=== PATIENT | male | born 1970 | race Two or more races ===

== ENCOUNTER 2016-06-11 11:31 | Emergency (ER) | payer OTHER ==
[2016-06-11 11:37] VITALS: TEMP 98.3; BMI 28.1
[2016-06-11] MEDS ORDERED: IBUPROFEN 400 MG TABLET (FP) PO ONE ×2 (12:37→12:40)
--- NOTE | 2016-06-11 13:24 | PDOC ---
[id number] Timing/Duration: reports: constant Quality: reports: severe <Bridger Cavazos - Last Filed: 06/11/16 15:05> <Magdiel Love - Last Filed: 06/16/16 07:59> - General Chief Complaint: Pain Stated Complaint: HEMMORHOID, LOWER PELVIC REGION Time Seen by Provider: 06/11/16 12:13 Past History - Past Medical History Anemia: No Asthma: No Cancer: No Cardiac Disorders: No CVA: No COPD: No CHF: No Dementia: No Diabetes: No GI Disorders: Yes (CONSTIPATION, GERD) Disorders: No HTN: No Hypercholesterolemia: No Liver Disease: No Seizures: No Thyroid Disease: No Other medical history: anal fissure - Surgical History Abdominal Surgery: No Appendectomy: No Cardiac Surgery: No Cholecystectomy: No Lung Surgery: No Neurologic Surgery: No Orthopedic Surgery: No - Psycho/Social/Smoking Cessation Hx Anxiety: No Suicidal Ideation: No Smoking History: Never smoked Have you smoked in the past 12 months: Yes Number of Cigarettes Smoked Daily: 3 Information on smoking cessation initiated: Yes Hx Alcohol Use: No Drug/Substance Use Hx: No Substance Use Type: None <Bridger Cavazos - Last Filed: 06/11/16 15:05> <Magdiel Love - Last Filed: 06/16/16 07:59> - Past Medical History Allergies/Adverse Reactions: Allergies Allergy/AdvReac Type Severity Reaction Status Date / Time No Known Allergies Allergy Verified 06/11/16 11:32 Home Medications: Ambulatory Orders NK [No Known Home Medication] 06/11/16 Review of Systems - Review of Systems Constitutional: No: Chills, Fever ABD/GI: Yes: Constipated, Rectal Bleeding. No: Diarrhea, Nausea, Vomiting, Abdominal cramping <Bridger Cavazos - Last Filed: 06/11/16 15:05> *Physical Exam - Vital Signs Last Vital Signs Temp Pulse Resp BP Pulse Ox 98.3 F 106 H 18 155/94 100 06/11/16 11:34 06/11/16 11:34 06/11/16 11:34 06/11/16 11:34 06/11/16 11:34 - Physical Exam General Appearance: Yes: Appropriately Dressed. No: Apparent Distress HEENT: positive: Normal Voice Neck: positive: Supple Respiratory/Chest: negative: Respiratory Distress Gastrointestinal/Abdominal: positive: Soft. negative: Tender Rectal Exam: positive: hemorrhoids, other (no obvious fissure, unable to digital exam) <Bridger Cavazos - Last Filed: 06/11/16 15:05> - Vital Signs Last Vital Signs Temp Pulse Resp BP Pulse Ox 98.3 F 83 18 146/87 97 06/11/16 11:34 06/11/16 15:35 06/11/16 15:35 06/11/16 15:35 06/11/16 15:35 <Magdiel Love - Last Filed: 06/16/16 07:59> ED Treatment Course - Medications Given in the ED: ED Medications Discontinued Medications Generic Name Dose Route Start Last Admin Trade Name Freq PRN Reason Stop Dose Admin Ibuprofen 800 mg 06/11/16 12:37 06/11/16 12:43 Motrin - PO 06/11/16 12:38 800 mg ONCE ONE Administration <Bridger Cavazos - Last Filed: 06/11/16 15:05> - Medications Given in the ED: ED Medications Discontinued Medications Generic Name Dose Route Start Last Admin Trade Name Freq PRN Reason Stop Dose Admin Ibuprofen 800 mg 06/11/16 12:37 06/11/16 12:43 Motrin - PO 06/11/16 12:38 800 mg ONCE ONE Administration <Magdiel Love - Last Filed: 06/16/16 07:59> Medical Decision Making - Medical Decision Making 06/11/16 13:20 45-year-old male, h/o GERD, endorses history of chronic rectal fissure was told at one point that he might need surgery, but currently following up with Dr. Gillespie and being treated symptomatically as needed, presenting with severe rectal pain with bright red blood per rectum in setting of constipation 1 week. Currently using [id number] laxatives and using sitz baths with some improvement and had a BM this am but states rectal pain remains intolerable. No abdominal pain, nausea, vomiting, fever or chills. Status post colonoscopy several months ago with unremarkable findings See exam Rectal pain w/ brbpr in setting of constipation in pt w/ h/o chronic rectal fissure 1 external hemorrhoid vs skin tag on rectal exam, no obvious fissure externally and pt unable to maría elena digital exam -pain control in ED -GI for recs 06/11/16 13:24 06/11/16 13:25 06/11/16 13:29 06/11/16 15:[address] Gillespie who recommend sending patient home with compound of nifedipine, lidocaine and hydrocortisone compound in bullet form for patient to use once a day for 5 days. Dennise requested me to call [facility] as they one of the only facilities that compound these meds. I contacted pharmacy, who states they will prepare medication, but wont be ready untill tomorrow or day after. Patient aware and will pickup meds when ready and follow-up with Dr. Gillespie. Patient instructed in the meantime to continue laxative and sitz baths 06/11/16 15:27 <Bridger Cavazos - Last Filed: 06/11/16 15:05> - Medical Decision Making The patient was seen and evaluated in conjunction with KRISTOPHER Box under my direct supervision, ancillary studies were reviewed. I agree with the plan as outlined by KRISTOPHER Cavazos . <Magdiel Love - Last Filed: 06/16/16 07:59> *DC/Admit/Observation/Transfer <Bridger Cavazos - Last Filed: 06/11/16 15:05> <Magdiel Love - Last Filed: 06/16/16 07:59> Diagnosis at time of Disposition: Anal fissure - Discharge Dispostion Disposition: HOME Condition at time of disposition: Good - Referrals Referrals: More Jones MD [Primary Care Provider] - - Patient Instructions Printed Discharge Instructions: Anal Fissure Additional Instructions: We discussed plan with Dr. Gillespie who recommended a concoction of nifedipine, lidocaine hydrocortisone, topical ointment to be used once a day for 5 days. The prescription was sent to [facility] that is located at [address] [place] [address]. Their phone number is [phone]. There are open from 9 AM to 7 PM. Prescription will be ready tomorrow or the day after. Please follow-up with Dr. Gillespie this week
[2016-06-11 15:45] VITALS: BP 146/87; PULSE 83
== END 2016-06-11 15:40 | disposition home or self-care (01) ==
LOC: JER 11:31
DX: K60.2 Anal fissure, unspecified (principal)
CPT/HCPCS: 99282-25

== ENCOUNTER 2017-01-27 10:35 | Emergency (ER) | payer OTHER ==
[2017-01-27 10:52] VITALS: BP 130/71; PULSE 70; TEMP 98.3; BMI 27.3
--- NOTE | 2017-01-27 11:57 | PDOC ---
History of Present Illness - General Chief Complaint: Ear Problem Stated Complaint: FOREIGN SUBSTANCE IN LT EAR Time Seen by Provider: 01/27/17 11:15 History Source: Patient Exam Limitations: No Limitations - History of Present Illness Initial Comments: 01/27/17 11:58 This is a 46-year-old gentleman without significant past medical history who presents to the emergency department with decreased hearing in his left ear. Patient states she is using silicone earplugs for which he breaks off pieces and inserts into his ears. Patient denies pain in the left ear has no complaints about his right ear. Patient is with illness for multiple times without any issues. He denies headaches, dizziness, fevers, nausea, vomiting, chest pain, shortness of breath, abdominal pain. Timing/Duration: 24 hours Severity: mild Past History - Past Medical History Allergies/Adverse Reactions: Allergies Allergy/AdvReac Type Severity Reaction Status Date / Time No Known Allergies Allergy Verified 01/27/17 10:52 Home Medications: Ambulatory Orders NK [No Known Home Medication] 06/11/16 Anemia: No Asthma: No Cancer: No Cardiac Disorders: No CVA: No COPD: No CHF: No Dementia: No Diabetes: No GI Disorders: Yes (CONSTIPATION, GERD) Disorders: No HTN: No Hypercholesterolemia: No Liver Disease: No Seizures: No Thyroid Disease: No - Surgical History Abdominal Surgery: No Appendectomy: No Cardiac Surgery: No Cholecystectomy: No Lung Surgery: No Neurologic Surgery: No Orthopedic Surgery: No - Suicide/Smoking/Psychosocial Hx Smoking History: Current some day smoker Have you smoked in the past 12 months: Yes Number of Cigarettes Smoked Daily: 5 Information on smoking cessation initiated: No Hx Alcohol Use: No Drug/Substance Use Hx: No Substance Use Type: None Review of Systems - Review of Systems Able to Perform ROS?: Yes Is the patient limited Latvian proficient: No Constitutional: No: Symptoms Reported HEENTM: Yes: See HPI Respiratory: No: Symptoms reported Cardiac (ROS): No: Symptoms Reported ABD/GI: No: Symptoms Reported : No: Symptoms Reported Musculoskeletal: No: Symptoms Reported Integumentary: No: Symptoms Reported Neurological: No: Symptoms reported Endocrine: No: Symptoms Reported Hematologic/Lymphatic: No: Symptoms Reported *Physical Exam - Vital Signs Last Vital Signs Temp Pulse Resp BP Pulse Ox 98.3 F 70 20 130/71 96 01/27/17 10:49 01/27/17 10:49 01/27/17 10:49 01/27/17 10:49 01/27/17 10:49 - Physical Exam General Appearance: Yes: Appropriately Dressed. No: Apparent Distress HEENT: positive: Other (impacted cerumen in right ear, retained silicone ear plug in left auditory canal) Respiratory/Chest: positive: Lungs Clear. negative: Respiratory Distress Cardiovascular: positive: Regular Rhythm, Regular Rate. negative: Edema Gastrointestinal/Abdominal: positive: Normal Bowel Sounds, Soft. negative: Tender Musculoskeletal: positive: Normal Inspection. negative: CVA Tenderness Extremity: positive: Normal Capillary Refill, Normal Inspection, Normal Range of Motion Integumentary: positive: Normal Color, Dry, Warm Neurologic: positive: Fully Oriented, Alert, Normal Response Medical Decision Making - Medical Decision Making 01/27/17 11:57 A/P: This is a 46-year-old gentleman without significant past medical history who presents to the emergency department with decreased hearing in his left ear. Patient states she is using silicone earplugs for which he breaks off pieces and inserts into his ears. Patient denies pain in the left ear has no complaints about his right ear. Patient is with illness for multiple times without any issues. He denies headaches, dizziness, fevers, nausea, vomiting, chest pain, shortness of breath, abdominal pain. Otoscopic examination of the left ear reveals silicone with complete obstruction of auditory canal. Examination of the right ear reveals large cerumen impacted in auditory canal. Patient has no tenderness with gentle pressure applied to tragus. Patient has no pain upon palpation to periauricular surfaces including the mastoid process. There is no discharge or drainage from the ear. Diagnoses-impacted cerumen in the right ear, retained foreign body in left ear I will attempt to remove retained silicone in left ear using alligator forceps and or curettes. I will use curette to remove impacted cerumen in left ear. If unsuccessful I will use peroxide solution followed by her rinse with water and then attempt with curette again. *DC/Admit/Observation/Transfer Diagnosis at time of Disposition: Retained foreign body - Discharge Dispostion Disposition: HOME Condition at time of disposition: Stable Admit: No - Referrals Referrals: More Jones MD [Primary Care Provider] - Maximo Morales MD [Staff Physician] - - Patient Instructions Additional Instructions: When using silicone multiple earplugs, placed being tired disc into the ear to block the external portion of the ear. Do not break up into smaller pieces in place into ear canal. You still have retained silicone into the left ear. He to follow-up within ENT doctor. Foldable for Dr. Morales been provided for you. He is an ENT doctor that works at this hospital is in the area. Return to emergency department for any fever, drainage from ear, severe pain, dizziness, headache, any other concerns. Thank you very much for choosing us to provide your emergent healthcare needs.
== END 2017-01-27 12:10 | disposition home or self-care (01) ==
LOC: JERFT 10:35
PROC: 09C47ZZ Extirpation of Matter from Left External Auditory Canal, Via Natural or Artificial Opening (ICD-10-PCS; principal; 2017-01-27)
DX: T16.1XXA Foreign body in right ear, initial encounter (principal); H61.21 Impacted cerumen, right ear
CPT/HCPCS: 69210; 99281-25